=== PATIENT | male | born 1950 | race Caucasian/White ===

== ENCOUNTER 2019-02-06 10:05 | Day surgery (SDC) | payer MEDICARE ==
[2019-02-06] MEDS ORDERED: Fentanyl 100 MCG/2 ML VIAL ONE ×2 (12:14→12:18)
[2019-02-06] MEDS ORDERED: Midazolam HCl 2 mg/2 ml Vial ONE (12:17)
--- NOTE | 2019-02-06 13:07 | MRI ---
MR CERVICAL SPINE WITHOUT CONTRAST INDICATION: Neck pain with stiffness. There is pain radiating into the right arm and hand TECHNIQUE: Multiplanar multisequence MR images were obtained of the cervical spine without contrast. COMPARISON: MR of the cervical spine dated January 20, 2009 FINDINGS: Posterior fossa: Within normal limits. Bone marrow signal intensity: The bone marrow signal intensity appears within normal limits. There is again seen a prominent anterior bridging osteophytes from C3 through C5. Spinal alignment: There is straightening of the normal cervical lordosis which is stable. Craniocervical junction: There is prominent degenerative changes seen at the anterior C1-C2 articulat ion that appears slightly more pronounced than on the prior exam. No definite periarticular erosions are evident. Prevertebral and perivertebral soft tissues: Visualized soft tissues appear within normal limits. Vertebral levels: C2-C3: There is a stable right paracentral protrusion at C2-C3 mildly effacing the ventral spinal cor d. No cord signal abnormality is evident. No neural foraminal narrowing is present. There is mild facet joint degenerative change bilaterally, left greater than right. C3-4: There is a stable broad-based disc osteophyte complex with facet hypertrophy and uncovertebral hypertrophy inducing stable moderate right and mild left neural foraminal narrowing. There is stable moderate central canal narrowing with mild ventral effacement of the spinal cord at this level . C4-5: There is a stable broad-based disc osteophyte complex with uncal vertebral hypertrophy and fac et hypertrophy inducing stable moderate right and [id number] left neural foraminal narrowing. There is stable mild central canal narrowing with ventral effacement of the subarachnoid space withou t definite cord compression. C5-C6: There is a stable broad-based disc osteophyte complex with uncovertebral hypertrophy and facet joint degenerative changes inducing stable moderate central canal narrowing with mild ventral effacement of the spinal cord. There is stable moderate bilateral neural foraminal narrowing. C6-C7:, There is uncal vertebral hypertrophy, broad-based disc osteophyte complex and facet joint deg enerative change introducing stable [id number] bilateral neural foraminal narrowing. C7-T1: There is a stable broad-based disc bulge with facet joint degenerative changes inducing stable mild right neural foraminal narrowing. IMPRESSION: 1. Stable severe multilevel spondylosis of the cervical spine with multilevel central canal and neura l foraminal narrowing that appears largely stable to the comparison examination in 2008.
--- NOTE | 2019-02-06 13:48 | MRI ---
LUMBAR SPINE MRI WITHOUT IV CONTRAST: Date: 02/06/19 HISTORY: Low back pain, occasional bilateral leg pain. FINDINGS: No significant abnormal marrow signal. Focal aneurysmal dilatation of the infrarenal abdominal aorta up to 3.6 cm. Several small renal T2 hyperintensity foci, not adequately characterized but statistica lly small cysts. Conus medullaris region is unremarkable, terminating at L2. Generalized disc desicca tion changes and ligament and facet hypertrophic changes. T12-L1: Mild lateral recess stenosis. L1-L2: Mild lateral recess stenosis. L2-L3: Generalized disc bulging with ligament and facet hypertrophic changes with moderate central c anal and moderate to severe bilateral recess stenosis and moderate bilateral foraminal stenosis. L3-L4: Mild lateral recess stenosis and foraminal stenosis. L4-L5: Very severe central spinal canal stenosis and lateral recess stenosis with facet arthrosis an d fluid within the facet joints, with moderate bilateral foraminal stenosis. L5-S1: Diffuse disc osteophytosis with a central disc osteophyte with some moderate central canal an d lateral recess stenosis, and moderate to severe bilateral foraminal stenosis. IMPRESSION: 1. Multilevel variable severity canal, lateral recess, and foraminal stenosis, most marked at L4-L5. 2. 3.6 cm diameter focal aneurysm of the distal abdominal aorta. 3. Other findings as above. CODE T. POS: GITA
== END 2019-02-06 14:13 | disposition home or self-care (01) ==
LOC: SDC/OP 10:05 → EDSTATUS 02-13 12:00
PROVIDERS: ATTEND Neurological Surgery
DX: M47.22 Other spondylosis with radiculopathy, cervical region (principal); M48.02 Spinal stenosis, cervical region; M48.061 Spinal stenosis, lumbar region without neurogenic claudication; I71.4 Abdominal aortic aneurysm, without rupture; Z79.01 Long term (current) use of anticoagulants; Z79.899 Other long term (current) drug therapy
CPT/HCPCS: 72141; 72148; J2250; J3010